=== PATIENT | female | born 1975 | race African-American/Black ===

== ENCOUNTER → 2018-03-11 | Outpatient (CLI) | payer OTHER ==
--- NOTE | ~2018-03-11 | PATH ---
[facility] [address] [address] PATHOLOGY RPT PROCEDURE Name: HERLINDA BETANCUR Room #: REG [facility] [place]#: [id number] Admission: 03/11/18 Date of : 71 Discharge: Report #: [id number] Path Case #: [id number] [facility] Accession Number: [id number] . 01 Material submitted: . PART A: BX OF TERMINAL ILEUM - THICKENED MUCOSA PART B: BX OF POLYP AT SIGMOID . 01 Clinical history: . Pre-OP DX: Abnormal CT Post-OP DX: Hemorrhoids, polyp, diverticulosis . 02 Diagnosis: A. Small bowel mucosa, terminal ileum, endoscopic biopsy: - Peyer's patches. - No histopathologic abnormality. . B. Polyp, at sigmoid, endoscopic biopsy: - Hyperplastic polyp. - Negative for dysplasia. . (IUV:miguelito; 03/12/2018) MBR/03/12/2018 . 02 Electronically signed: . Holly Sanches MD, Pathologist NPI- [id number] . 01 Gross description: . A. Received in formalin labeled "Herlinda Betancur BX of terminal ileum," are 3 segments of shrestha soft tissue measuring 0.9 x 0.6 x 0.2 cm in aggregate dimensions and ranging from 0.3 to 0.5 cm in maximum dimension. The specimen is submitted entirely in cassette A1. . B. Received in formalin labeled "Herlinda Betancur, BX of polyp at sigmoid," are 2 segments of shrestha soft tissue measuring 0.6 x 0.2 x 0.2 cm in aggregate dimensions and measuring 0.3 cm each in maximum dimension. The specimen is submitted entirely in cassette B1. (TSD; 03/11/2018) TOB/TOB . 02 Pathologist provided ICD-10: K63.5, R93.89 . 02 CPT . 871709, [id number] Specimen Comment: A courtesy [place] of [place] [address] PATHOLOGY RPT PROCEDURE Name: FIDENCIO BETANCURSHARMAINE Haque Room #: REG [facility]#: [id number] Admission: 03/11/18 Date of : 71 Discharge: Report #: [id number] Path Case #: [id number] Specimen Comment: [phone], . Specimen Comment: Report sent to / DR PENDLETON Performed at: [address] [facility], [place], [place] [id number] MD Jimmie Garcia MD Phone: [phone] Performed at: [address] [id number] MD Holly Sanches MD Phone: [phone]
== END | disposition home or self-care (01) ==
LOC: GI 10:30
DX: D12.5 Benign neoplasm of sigmoid colon (principal); K63.5 Polyp of colon; K63.89 Other specified diseases of intestine; K64.8 Other hemorrhoids; K57.30 Diverticulosis of large intestine without perforation or abscess without bleeding; I10 Essential (primary) hypertension; G47.33 Obstructive sleep apnea (adult) (pediatric); E66.09 Other obesity due to excess calories
CPT/HCPCS: 62110; 62900

== ENCOUNTER → 2019-05-19 | Outpatient (CLI) | payer OTHER | LOC: SJCVCIMAG 07:28 | DX: R94.31 Abnormal electrocardiogram [ECG] [EKG] (principal); I10 Essential (primary) hypertension; R00.2 Palpitations ==

== ENCOUNTER 2021-05-03 21:20 | Emergency (ER) | payer OTHER ==
[~2021-05-03] VITALS: Ht 165.1 cm; Wt 137.4 kg
[2021-05-03 22:29] VITALS: BP 182/90
[2021-05-03] MEDS ORDERED: NORVASC5 M1 PO (22:34)
[2021-05-03] MEDS ORDERED: HYDROCHLOROTHIA25 M1 PO (22:34)
[2021-05-03] MEDS ORDERED: POTASSIUM PO (22:35)
[2021-05-04] MEDS ORDERED: MECLIZINE HCL25 MG PO (01:25)
== END 2021-05-04 02:09 | disposition home or self-care (01) ==
LOC: ER 21:20
DX: R42 Dizziness and giddiness (principal); I10 Essential (primary) hypertension; Z79.899 Other long term (current) drug therapy; Z91.02 Food additives allergy status